=== PATIENT | female | born 1995 | race Caucasian/White ===

== ENCOUNTER 2020-04-06 18:17 | Emergency (ER) | payer MEDICAID ==
[~2020-04-06] VITALS: Ht 165.1 cm; Wt 70.0 kg
[2020-04-06 18:25] VITALS: BP 121/84
[2020-04-06] MEDS ORDERED: TETANUS, DIPHTHERIA, PERTUSSIS VAC/PF 0.5ML (>7YR OLD) IM ONE (19:45)
[2020-04-06] MEDS ORDERED: BACITRACIN ZINC OINT UDPKT TOP ONE (19:45)
[2020-04-06] MEDS ORDERED: KETOROLAC 60MG/2ML VIAL IM ONE (19:45)
== END 2020-04-06 21:27 | disposition home or self-care (01) ==
LOC: ER 18:17
DX: S81.812A Laceration without foreign body, left lower leg, initial encounter (principal); V18.0XXA Pedal cycle driver injured in noncollision transport accident in nontraffic accident, initial encounter; Y93.55 Activity, bike riding; Y92.488 Other paved roadways as the place of occurrence of the external cause
CPT/HCPCS: 90471; 90715; 96372; 99284; J1885